=== PATIENT | female | born 1955 | race Caucasian/White ===

== ENCOUNTER 2020-12-26 14:30 | Emergency (ER) | payer OTHER ==
[2020-12-26 14:38] VITALS: BP 162/91; PULSE 85; TEMP 97.7; BMI 20.8
== END 2020-12-26 16:36 | disposition home or self-care (01) ==
LOC: JERFT 14:30
DX: D22.9 Melanocytic nevi, unspecified (principal)
CPT/HCPCS: 99281-25

== ENCOUNTER → 2021-08-25 | Day surgery (SDC) | payer OTHER | END | disposition home or self-care (01) | LOC: FMAMMOTONE 09:17 | PROVIDERS: ATTEND Surgery | PROC: 0HBT3ZX Excision of Right Breast, Percutaneous Approach, Diagnostic (ICD-10-PCS; principal; 2021-08-25) | DX: N60.21 Fibroadenosis of right breast (principal); N60.31 Fibrosclerosis of right breast; N60.41 Mammary duct ectasia of right breast; N60.81 Other benign mammary dysplasias of right breast; N64.89 Other specified disorders of breast; R92.8 Other abnormal and inconclusive findings on diagnostic imaging of breast | CPT/HCPCS: 19081; 76098-TC-FY; 87899; 88305-TC; A4648 ==